=== PATIENT | female | born 1985 | race Caucasian/White ===

== ENCOUNTER 2024-01-02 13:15 | Emergency (ER) | payer BC, MEDICAID, SELFPAY ==
[2024-01-02 13:16] VITALS: BP 116/77; PULSE 74; RESP 16; TEMP 36.6; O2SAT 98; BMI 23.6
--- NOTE | 2024-01-02 16:34 | CT_ITS ---
EXAM: CT HEAD WITHOUT INTRAVENOUS CONTRAST CLINICAL INDICATION: headache TECHNIQUE: Multiple axial images were obtained of the head without intravenous contrast. This CT exam was performed using one or more of the following dose reduction techniques: automated exposure control, adjustment of the mA and/or kV according to patient size, and/or use of iterative reconstruction technique. RADIATION DOSE: CTDIvol = 44.99 mGy, DLP = 745.49 mGy-cm COMPARISON: No relevant prior studies available. FINDINGS: BRAIN AND EXTRA-AXIAL SPACES: Unremarkable. No intra- or extra-axial hemorrhage. No evidence of acute infarct. No intracranial mass or mass effect. There is preservation of the keane/white matter interface. Posterior fossa structures are unremarkable. Ventricles are appropriate for age. No hydrocephalus. Basal cisterns are patent. BONES/JOINTS: Unremarkable. No discrete lytic or blastic abnormalities. SINUSES: Unremarkable as visualized. Clear. MASTOID AIR CELLS: Unremarkable. Clear. ORBITS: Visualized globes, extraocular muscles, optic nerves and retrobulbar fat appear unremarkable. CT/Brain/Head without Contrast IMPRESSION: Negative head/brain CT without intravenous contrast. Electronically Signed: Joseluis Mello MD at 17:24 EST ,
--- NOTE | 2024-01-02 16:38 | EDS_ITS ---
HPI History of Present Illness Chief Complaint: Headache Informant: patient Narrative Narrative: Patient is a 38-year-old female with history of migraines (remote and stopped after she had hysterectomy at age 24) and epilepsy presenting with headache. She been having headache for the past 6 days. She notes a week ago she had dental work and had deep feeling. The dental work took about 3 hours. Was on the right lower jaw. She denies any pain at that site. She notes the headache started at her temples and behind her eye and to the top of her head but now it is more diffuse. It goes down to the base of her neck. She has some blurry vision but states if she blinks or rubs her eyes it goes away. She denies any fever or chills. Has some associated photosensitivity. Denies any hearing changes or hearing anything abnormal in her ears. Has been trying to take Tylenol and ibuprofen but states it does not with the pain but makes her feel funny. 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 She is never required a shunt. She has appointment to follow-up with neurology this summer (04/08), but notes that she has not been seen in some time for this. No other complaints or concerns at th is time reported. PFSH PFSH Home Medications metaxalone 800 mg tablet 800 mg PO TID PRN muscle pain/tension headache #20 tabs 01/02/24 [Rx Last Taken Unknown] Allergy/AdvReac Type Severity Reaction Status Date / Time pseudoephedrine Allergy Angioedema Verified 01/02/24 13:[address] [[address] [facility]] Social History Smoking Status: Never smoker ROS ROS ED Constitutional Constitutional ED: Denies chills or fever(s) Eyes Eyes: Reports blurry vision ENT ENT ED: Denies ear pain, rhinorrhea or sore throat Cardiovascular Cardiovascular: Denies chest pain Respiratory/Chest Respiratory/Chest: Denies cough Gastrointestinal Gastrointestinal: Reports nausea and vomiting; Denies abdominal pain Musculoskeletal Musculoskeletal: Reports neck pain; Denies arthralgias or myalgias Neurologic Neurologic: Reports headache(s) and paresthesias LUE and LLE (Patient reports chronic paresthesias to the left side of her face and the left side of her body, unchanged); Denies weakness Hematologic/Lymphatic Hematologic/Lymphatic: Denies easy bleeding or easy bruising EXAM Physical Exam Const Vital Signs: 01/02/24 13:16 01/02/24 18:00 Temperature 97.8 F Temperature Source Temporal Pulse Rate 74 Respiratory Rate 16 16 Blood Pressure 116/77 Blood Pressure Mean 90 Pulse Ox 98 Oxygen Delivery Method Room Air Positive well nourished and well developed General Appearance ED: well developed and NAD HEENT Reports normocephalic, TM's clear and moist mucous membranes HEENT Narrative: Mild tenderness with release of the TMJ but no pain with pressure on the TMJ. No TMJ abnormality appreciated. atraumatic Tympanic Membrane ED: Yes TM's clear Eyes PERRL and EOMs intact bilaterally Eyes Narrative: No visual field cut appreciated Resp normal respiratory effort and clear to auscultation bilaterally Cardio regular rate, regular rhythm and no murmurs GI non-tender and non-distended Extremity normal to inspection and full ROM Neuro oriented x3 and CN's II-XII intact bilaterally Neuro Narrative: Subjective paresthesias to the left side of the body which is chronic per patient Coordination / Balance: [id number] test normal Speech: speech normal Gait (Neuro): normal gait Motor Exam: strength 5/5 throughout; Negative for general weakness Psych mental status grossly normal Skin Lesions: no lesions Rashes: no rashes MDM MDM MDM Narrative Medical decision making narrative: Patient is given IM Toradol per request for her headache. Low suspicion for subarachnoid hemorrhage given the gradual onset. She is a normal neurologic exam. Given that she does have this reported history of benign masses in her brain I did obtain a CT of the brain to make sure she does not have signs of hydrocephalus or other mass effect. CT of the brain does not show any acute process. Patient is offered a migraine cocktail as well as IV however she declined stating that she has a lot of reactions to medications. On repeat evaluation states she is feeling better but still is a headache. I suspect this is more of a tension headache associated with her dental work. She does not have any systemic symptoms of infection and her vital signs are normal. Patient will be discharged on a prescription for Skelaxin for her tension headache and will continue taking NSAIDs as well as Tylenol. I will try to expedite outpatient follow-up with [facility] neurology (Dr. Harris). Given return precautions. Patient and significant other verbalized agreement or stands plan. Radiography Diagnostic Testing: Clinical Impression(s) from Imaging Studies Brain CT 01/02/24 16:34 IMPRESSION: Negative head/brain CT without intravenous contrast. Electronically Signed: Joseluis Mello MD at 17:24 EST , Discharge Plan Triage Chief Complaint: Headache ED Provider: Patsy Anderson Dx/Rx/DC Orders Clinical Impression: Tension headache Instructions: ED Headache, Tension Prescriptions: New metaxalone 800 mg tablet 800 mg PO TID PRN (Reason: muscle pain/tension headache ) Qty: 20 0RF Primary Care Provider: Deric Valentine Referrals: Deric Valentine MD [Primary Care Provider] - Activity Restrictions/Additional Instructions: Your CT of the brain did not show any acute process today. If your symptoms worsen please return to the emergency room. He may continue to alternate ibuprofen and Tylenol. I suspect this is more of a tension headache related to your dental procedure. You been prescribed muscle relaxer to see if this helps with your headache symptoms. Disposition Disposition: Home, Self Care
[2024-01-02] MEDS: Ketorolac 15 MG/ML Vial IM (17:13)
[2024-01-02 18:00] VITALS: RESP 16
[2024-01-02 18:07] VITALS: BP 110/78; PULSE 74; RESP 16; TEMP 36.8; O2SAT 95
== END 2024-01-02 18:16 | disposition home or self-care (01) ==
PROVIDERS: Emergency Provider Emergency Medicine; PCP Family Medicine; Visit Provider Emergency Medicine
DX: G44.209 Tension-type headache, unspecified, not intractable (principal); Z90.710 Acquired absence of both cervix and uterus
CPT/HCPCS: 70450; 96372; 99282

== ENCOUNTER → 2024-03-05 | Outpatient (CLI) | payer BC, SELFPAY ==
[2024-03-05 17:40] LABS: Mucous, Urine 0 SEEN /hpf (<or=2+)
[2024-03-05 17:59] LABS: Glucose, Dipstick Normal (Normal); Ketone-Dipstick Negative (Negative); Leukocyte Esterase-Dipstick 100 /ul (Negative); Nitrite-Dipstick Positive (Negative); Occult Blood-Urine 250 /ul (Negative); Protein-Dipstick 30 mg/dl (Negative); Urine Clarity Sl. Cloudy (Clear); Urine Urobilinogen 8 mg/dl (Normal)
[2024-03-05 18:02] LABS: Color, Urine SEE COMMENT BELOW (Yellow); Urine Bilirubin Dipstick 6 mg/dL (Negative)
[2024-03-05 18:13] LABS: Bacteria 1+ /hpf (None Seen); Red Blood Cells-Urine 25-50 SEEN /hpf (0-5); Squamous Epithelial Cells - UA 0-5 SEEN /hpf (5-10); White Blood Cells 25-50 SEEN /hpf (0-5)
== END | disposition home or self-care (01) ==
LOC: LABSPEC 17:39
PROVIDERS: PCP Family Medicine; Visit Provider Physician Assistant
DX: N39.0 Urinary tract infection, site not specified (principal); R30.0 Dysuria
CPT/HCPCS: 81001; 87086; 87088; 87186

== ENCOUNTER → 2024-09-17 | Outpatient (CLI) | payer BC, SELFPAY ==
[2024-09-17 10:34] LABS: Absolute Lymphocyte Count 2.17 X10^3/uL (0.83-4.51); Absolute Neutrophil Count 3.4 X10^3/uL (2.0-7.7); Basophil# 0.03 X10^3/uL; Basophil% 0.5 % (0-1); Eosinophil# 0.19 X10^3/uL; Hematocrit 40.2 % (37-47); Hemoglobin 13.3 g/dL (12.0-15.0); Lymphocyte # 2.17 X10^3/ul (0.83-4.51); Lymphocyte % 34.2 % (19-41); Mean Corp Hgb Conc 33.1 g/dL (32-36); Mean Corpuscular Hgb 28.9 pg (27.0-32.0); Mean Corpuscular Volume 87.4 fL (81-99); Mean Platelet Vol. 11.6 fl (6.2-12.0); Monocyte# 0.52 X10^3/uL; Monocyte% 8.2 % (0-10); NRBC Flagged by Analyzer 0 % (0-5); Neutrophil # 3.41 X10^3/uL (2.7-7.7); Neutrophil % 53.8 % (47-70); Platelet Count 224 K/mm3 (150-450); RBC Distribution Width CV 11.8 % (11.6-14.6); RBC Distribution Width SD 37.6 fl (35.1-43.9); White Blood Count 6.3 K/mm3 (4.4-11.0)
[2024-09-17 11:01] LABS: ALB/GLOB Ratio 1.3 RATIO (0.9-2.4); AST(SGOT) 12 U/L (15-37); Alanine Aminotransfer ALT/SGPT 17 U/L (13-56); Alkaline Phosphatase 60 U/L (45-117); Anion Gap 9 (5-15); BUN 11 mg/dL (7-18); BUN/Creat Ratio 12.5 RATIO (10-20); Calcium,Total 8.8 mg/dL (8.5-10.1); Chloride 105 mmol/L (98-107); Cholesterol 200 mg/dL (200); Creatinine, Serum 0.88 mg/dL (0.55-1.02); EST Glomerular Filtration Rate 77 mL/min (>60); Est Glom Filt Rate - Afr Amer 93 mL/min (>60); Globulin 3.1 g/dL (2.2-4.2); Glucose 121 mg/dL (74-106); High Density Lipoprotein 64 mg/dL; Potassium 3.5 mmol/L (3.5-5.1); Protein, Total 7.1 g/dL (6.4-8.2); Sodium Level 136 mmol/L (136-145); Triglycerides 122 mg/dL; Very Low Density Lipoprotein 24 mg/dL (5-40)
== END | disposition home or self-care (01) ==
LOC: MFPLAB 08:04
PROVIDERS: Referring Provider Family Medicine; Visit Provider Family Medicine
DX: N92.0 Excessive and frequent menstruation with regular cycle (principal); G40.109 Localization-related (focal) (partial) symptomatic epilepsy and epileptic syndromes with simple partial seizures, not intractable, without status epilepticus; Z80.3 Family history of malignant neoplasm of breast; Z13.220 Encounter for screening for lipoid disorders
CPT/HCPCS: 36415; 80053; 80061; 81291; 84443; 85025

== ENCOUNTER → 2024-09-22 | Outpatient (CLI) | payer BC, SELFPAY | END | disposition home or self-care (01) | LOC: MFPLAB 08:10 | PROVIDERS: PCP Family Medicine; Visit Provider Family Medicine | DX: N92.0 Excessive and frequent menstruation with regular cycle (principal); G40.109 Localization-related (focal) (partial) symptomatic epilepsy and epileptic syndromes with simple partial seizures, not intractable, without status epilepticus; Z13.220 Encounter for screening for lipoid disorders; Z80.3 Family history of malignant neoplasm of breast | CPT/HCPCS: 81291 ==